=== PATIENT | female | born 1965 | race Two or more races ===

== ENCOUNTER 2019-01-12 06:09 | Emergency (ER) | payer OTHER ==
[~2019-01-12] VITALS: Ht 160 cm; Wt 86.2 kg
[~2019-01-12 06:09] MED LIST: SYNTHROID50 MCG PO
== END 2019-01-12 10:30 | disposition home or self-care (01) ==
LOC: ER 06:09
DX: S80.02XA Contusion of left knee, initial encounter (principal); W18.09XA Striking against other object with subsequent fall, initial encounter; Y93.89 Activity, other specified; Y92.89 Other specified places as the place of occurrence of the external cause; Y99.8 Other external cause status

== ENCOUNTER 2019-01-15 19:33 | Emergency (ER) | payer OTHER ==
[~2019-01-15] VITALS: Ht 160 cm; Wt 86.2 kg
== END 2019-01-15 22:45 | disposition home or self-care (01) ==
LOC: ER 19:33
DX: S00.83XA Contusion of other part of head, initial encounter (principal); S00.33XA Contusion of nose, initial encounter; W18.39XA Other fall on same level, initial encounter; Y93.89 Activity, other specified; Y92.89 Other specified places as the place of occurrence of the external cause; Y99.8 Other external cause status

== ENCOUNTER 2020-06-01 09:41 | Emergency (ER) | payer OTHER ==
[~2020-06-01] VITALS: Ht 160 cm; Wt 88.5 kg
[2020-06-01] MEDS ORDERED: SYNTHROID100 MCG (10:07)
[2020-06-01] MEDS ORDERED: MECLIZINE HCL25 MG PO (17:34)
== END 2020-06-01 17:40 | disposition home or self-care (01) ==
LOC: ER 09:41
DX: H81.12 Benign paroxysmal vertigo, left ear (principal)

== ENCOUNTER 2023-03-27 13:45 | Emergency (ER) | payer OTHER ==
[~2023-03-27] VITALS: Ht 160 cm; Wt 90.7 kg
[~2023-03-27 13:45] MED LIST changes: +MECLIZINE HCL25 MG PO; +SYNTHROID100 MCG
== END 2023-03-27 18:06 | disposition home or self-care (01) ==
LOC: ER 13:45
DX: R10.11 Right upper quadrant pain (principal)

== ENCOUNTER 2023-04-05 21:01 | Inpatient (IN) | payer OTHER ==
[~2023-04-05] VITALS: Ht 160 cm; Wt 89.8 kg
== END 2023-04-09 18:18 | disposition home or self-care (01) | DRG 392 ==
LOC: ER 21:01 → SEC-K 04-06 12:43 → MEDJ 04-06 12:43
PROVIDERS: ADMIT Specialist; ATTEND Specialist
DX: K57.32 Diverticulitis of large intestine without perforation or abscess without bleeding (principal); E86.0 Dehydration; E03.9 Hypothyroidism, unspecified

== ENCOUNTER 2023-06-07 10:49 | Emergency (ER) | payer OTHER ==
[~2023-06-07] VITALS: Ht 160 cm; Wt 86.2 kg
[2023-06-07 13:28] LABS: HEMATOCRIT 37.5 % (36.0-45.00); HEMOGLOBIN 12.8 g/dL (12.0-15.00); MEAN CELL VOLUME 92.7 fL (80.00-100.00); MEAN CORPUSCULAR HEMOGLOBIN 31.6 pg (27.00-32.0); MEAN CORPUSCULAR HGB CONC 34.1 g/dl (32.0-36.0); PLATELET COUNT 410 K/uL (150-450); RED BLOOD COUNT 4.04 M/uL (4.00-6.00); RED CELL DISTRIBUTION WIDTH 13.7 % (11.5-14.5)
[2023-06-07 13:58] LABS: CREATININE SERUM 0.9 mg/dL (0.55-1.02); GFR 63.87; POTASSIUM 3.7 mEq/L (3.5-5.1)
== END 2023-06-07 18:04 | disposition home or self-care (01) ==
LOC: ER 10:49
PROVIDERS: General Practice
DX: K52.89 Other specified noninfective gastroenteritis and colitis (principal); Z20.822 Contact with and (suspected) exposure to COVID-19

== ENCOUNTER 2023-07-24 10:53 | Emergency (ER) | payer OTHER ==
[~2023-07-24] VITALS: Ht 160 cm; Wt 86.2 kg
[2023-07-24] MEDS ORDERED: SYNTHROID75 MCG PO (11:16)
[2023-07-24] MEDS ORDERED: TUSNEL LIQUID178 ML PO (11:57)
[2023-07-24] MEDS ORDERED: ZITHROMAX500 MG PO (11:57)
== END 2023-07-24 12:29 | disposition home or self-care (01) ==
LOC: ER 10:54
DX: J06.9 Acute upper respiratory infection, unspecified (principal)

== ENCOUNTER → 2023-08-24 | Emergency (ER) | payer OTHER ==
[~2023-08-24] MED LIST changes: +SYNTHROID75 MCG PO; +TUSNEL LIQUID178 ML PO; +ZITHROMAX500 MG PO
== END | disposition left against medical advice (07) ==
LOC: ER 11:06
DX: Z53.21 Procedure and treatment not carried out due to patient leaving prior to being seen by health care provider (principal)